=== PATIENT | male | born 2000 | race Caucasian/White ===

== ENCOUNTER 2020-03-30 12:25 | Outpatient (REF) | payer OTHER, SELFPAY | END 2020-03-30 12:26 | disposition home or self-care (01) | LOC: HO.LAB 12:25 | PROVIDERS: Visit Provider Internal Medicine | DX: Z20.828 Contact with and (suspected) exposure to other viral communicable diseases (principal) | CPT/HCPCS: C9803; U0003 ==

== ENCOUNTER 2020-04-06 21:34 | Emergency (ER) | payer OTHER, SELFPAY ==
[2020-04-06 21:53] VITALS: BP 133/90; PULSE 60; RESP 18; TEMP 36.9; O2SAT 98; BMI 31.1
--- NOTE | 2020-04-06 22:04 | ED_ITS ---
HPI - General Adult General Chief complaint: General Medical Stated complaint: Throat Discomfort Time Seen by Provider: 04/06/20 21:59 Source: patient Mode of arrival: ambulatory Limitations: no limitations History of Present Illness HPI narrative: 20 yo male previously healthy here with complaints of burning in his throat and chest after eating and the feeling like food gets stuck. No complaints on arrival in ED. Intermittent symptoms x 1-2 months. No vomiting, diarrhea or abdominal pain. Onset (ago): month(s) Radiation: non-radiation Severity: mild Quality: burning Pain Consistency: intermittent Relieving factors: none Exacerbating factors: none Associated symptoms: denies other symptoms Related Data Previous Rx's Medication Instructions Recorded omeprazole 20 mg PO DAILY #20 cap 04/06/20 Allergies Allergy/AdvReac Type Severity Reaction Status Date / Time No Known Allergies Allergy Verified 04/06/20 21:43 Review of Systems Review of Systems: Yes all other systems are reviewed and are negative Constitutional: Constitutional: Reports no additional constitutional complaints, Denies body ache(s), Denies chills, Denies fever(s), Denies headache(s) and Denies weakness Eyes: Eyes: Reports no additional eye complaints and Denies change in vision ENT: Reports system reviewed and no additional complaints, except as documented, Reports dysphagia, Denies dizziness, Denies headache(s), Denies nasal congestion, Denies nasal discharge and Denies neck pain Cardiovascular: Cardiovascular: Reports no additional cardiovascular complaints, Denies chest pain, Denies leg edema and Denies dyspnea Respiratory: Respiratory: Reports no additional respiratory complaints, Denies cough and Denies dyspnea Gastrointestinal: Gastrointestinal: Reports no additional gastrointestinal complaints, Denies abdominal pain, Reports dysphagia, Denies diarrhea, Denies nausea and Denies vomiting Genitourinary: Genitourinary: Denies urinary incontinence Musculoskeletal: Musculoskeletal: Reports no additional musculoskeletal complaints, Denies back pain, Denies arthralgias, Denies joint swelling, Denies neck pain, Denies numbness and Denies tingling Integumentary/Breasts: Skin/Breast: Reports system reviewed and no additional complaints, except as docu and Denies rash Neurologic: Reports system reviewed and no additional complaints, except as documented, Denies Abnormal speech present, Denies dizziness, Denies headache(s), Denies numbness, Denies tingling and Denies weakness [facility] Past Medical History Attestation statement: The following information was validated with the patient. Source: old records reviewed and nursing notes reviewed Medical History No significant medical problems Social History Social History Alcohol intake: current Alcohol intake frequency: holidays/special occasions only Smoking Status: Never smoker Smoked in Last 30 Days: No Use of substances other than those prescribed or required for medical reasons: No Advance Directives: No Advance Directives Information Provided: No Physical Exam Vital Signs: Vital Signs: Last Vital Signs Temp 98.5 F 04/06/20 21:53 Pulse 60 04/06/20 21:53 Resp 18 04/06/20 21:53 BP 133/90 H 04/06/20 21:53 Pulse Ox 98 04/06/20 21:53 Body Mass Index 31.1 Const: General: cooperative, healthy appearing, comfortable and no acute distress Orientation/consciousness: patient oriented x3 Limitations: no limitations HENMT: Head: Yes normal to inspection Ears: hearing grossly normal randolph aterally General nose exam: Normal external nose present Face and sinus: Yes normal facial exam Mouth: Normal oral and palatal mucosa present Throat: Yes posterior oropharynx normal Eyes: General: appearance normal, both eyes and all related structures Pupils: Equal, round and reactive pupils present Neck: Neck: Yes normal visual inspection Chest: Chest palpation & inspection: normal inspection of the chest Resp: Effort & Inspection: normal respiratory effort Auscultation: clear to auscultation bilaterally Cardio: Rate: regular rate Rhythm: regular rhythm Peripheral pulses: Peripheral pulses 2+ throughout GI: Inspection: Yes normal to inspection Palpation (GI): Soft to palpation and nontender Auscultation: normal bowel sounds Back/Spine/Pelvis: Thoracic/Lumbar Spine: thoracic and lumbar spine normal to inspection Skin: General skin exam: no rashes or lesions noted Neuro: General: patient oriented x3, no focal motor deficits and normal sensation to monofilament Cranial nerves: Yes Equal, round and reactive pupils present Cognition (Neuro): normal cognition Speech: No Abnormal speech present Gait exam (Neuro): Normal gait present Motor exam (neuro): 5/5 motor strength present throughout Extrem: General: Yes normal to inspection Course Course Course Narrative: HPI consistent with GERD and possible esophageal stricture. Patient able to drink and eat while he was here in the emergency department with no difficulty. He can follow up outpatient with GI for further evaluation. We recommended soft diet and PPI until seen by GI. Reviewed worrisome signs and symptoms and when to return to the emergency department. Comfortable with discharge home. Discharge Plan Discharge Clinical Impression: Dysphagia, GERD (gastroesophageal reflux disease) Patient Disposition: Home, Self-Care Instructions: Gastroesophageal Reflux Disease (ED), Dysphagia (ED) Additional Instructions: Soft foods Call GI on Thursday to set up an appointment Prescriptions: New omeprazole 20 mg capsule,delayed release(DR/EC) 20 mg PO DAILY Qty: 20 RF: 0 Referrals: Zbigniew Leon [Physician] - 2 days Interventions: ED Discharge Assessment Last Done: 04/06/20 22:12 Discharge Date/Time: 04/06/20 22:13
== END 2020-04-06 22:13 | disposition home or self-care (01) ==
PROVIDERS: Emergency Provider Emergency Medicine
DX: R13.10 Dysphagia, unspecified (principal); K21.9 Gastro-esophageal reflux disease without esophagitis; Z79.899 Other long term (current) drug therapy
CPT/HCPCS: 99283

== ENCOUNTER 2022-08-17 03:27 | Emergency (ER) | payer OTHER, SELFPAY ==
--- NOTE | ~2022-08-17 | XR_ITS ---
EXAMINATION: XR KNEE, RIGHT CLINICAL INFORMATION: Pain. Fall. COMPARISON: None available. TECHNIQUE: Four views of the right knee. FINDINGS: Bones and soft tissues are normal. No fracture or joint effusion. Alignment is anatomic. Joint spaces are well maintained. No abnormal soft tissue calcification. XR/XR knee RT 4V IMPRESSION: Normal right knee.
[2022-08-17 03:36] VITALS: BP 136/82; PULSE 72; RESP 16; TEMP 36.8; O2SAT 97; BMI 31.3
--- NOTE | 2022-08-17 04:34 | ED.LOWEXIN ---
HPI - Extremity Injury (Lower) General Chief Complaint: Extremity Injury, Lower Stated Complaint: knee inj from baseball Time Seen by Provider: 08/17/22 04:00 Source: patient Mode of arrival: wheelchair History of Present Illness HPI Narrative: 22-year-old male who states that he was playing baseball earlier and that he slid and planted his foot with medial deviation of the right knee stated that he heard a pop in patient was able to walk a little bit on his leg initially but then the pain has gotten progressively worse and this time he is unable to bear weight on his right leg. Related Data Previous Rx's Medication Instructions Recorded omeprazole 20 mg capsule,delayed 20 mg PO DAILY #20 caps 04/06/20 release Allergies Allergy/AdvReac Type Severity Reaction Status Date / Time No Known Allergies Allergy Verified 04/06/20 21:43 Review of Systems Review of Systems: Pertinent positives and negatives as stated in HPI [facility] Past Medical History Source: nursing notes reviewed Medical History No significant medical problems Social History Social History Alcohol intake: current Alcohol intake frequency: holidays/special occasions only Physical Exam Vital Signs: Vital Signs: Last Vital Signs Temp 98.2 F 08/17/22 03:36 Pulse 72 08/17/22 03:36 Resp 16 08/17/22 03:36 BP 136/82 08/17/22 03:36 Pulse Ox 97 08/17/22 03:36 O2 Del Method Room Air 08/17/22 03:36 BMI result Body Mass Index 31.3 VITAL SIGNS: Reviewed. GENERAL: Well developed, well nourished, in no acute distress. HEAD: Normocephalic/atraumatic EYES: PERRLA, EOMI EARS: Ext canals without abnormality LUNGS: Normal breath sounds. No adventitious sounds or accessory muscle use. SpO2<97> CARDIOVASCULAR: Regular rate and rhythm without noted murmurs ABDOMEN: Soft, non-tender, non-distended with bowel sounds. EXTREMITIES: No cyanosis, clubbing or edema. RIGHT KNEE: There is no obvious deformity or effusion noted, tenderness to palpation especially along the medial tibial plateau and along the medial collateral ligaments around posterior to the inferior portion of the popliteal fossa, no effusions or masses palpated, patient unable to tolerate provocative testing he does not express any significant pain on palpation over the lateral collateral ligaments, passive range of motion only to about 15-20 degrees of flexion. Distally, pulses are palpable foot is warm capillary refills less than 3 seconds and sensation is intact. NEUROLOGIC: Alert and oriented x 4. Strength and sensation to light touch were grossly intact x 4. Medical Decision Making Medical Decision Making MDM Narrative: 22-year-old male with suspected AMARI injury likely involves meniscal injury as well. Provocative testing was unable to be performed, patient received combination analgesics and was placed in a knee immobilizer, provided with an ice pack and given crutch training. He will be receiving a referral to follow-up with Dr. Levin by calling the office on Thursday and understands that this does not mean that he will get an appointment on that day. Differential Diagnosis Please see the discussion above Radiology Impression Radiologist Impression: My interpretation is in agreement with radiology's impression of the imaging study. Discharge Plan Discharge Clinical Impression: Injury of knee, right Patient Disposition: Home, Self-Care Instructions: Crutch Instructions (ED), Knee Immobilizer (ED), R.I.C.E. Treatment (ED), Knee Pain (ED) Additional Instructions: 1. Tylenol 1000 mg, orally, every 6 hours as needed for pain control. Do not exceed 4000 mg within 24 hours. 2. Ibuprofen 400 mg, orally with milk or food, every 6 hours as needed for pain control. I recommend taking this medication with Tylenol for improved symptom relief. 3. Please review the additional recommendations for rest, ice, elevation. 4. You have been provided with a referral to follow-up with orthopedics you will need to call the office on Thursday. You will not receive an appointment that same day. Prescriptions: No Action omeprazole 20 mg capsule,delayed release(DR/EC) 20 mg PO DAILY Qty: 20 0RF Referrals: Joss Levin MD [Physician] - (22M, mechanism sounds like possible AMARI/meniscal, couldn't tolerate provocative testing, not much swelling.)
[2022-08-17] MEDS: Acetaminophen 325 MG TABLET 975 MG PO (04:56)
[2022-08-17] MEDS: Ibuprofen 400 MG TABLET PO (04:56)
[2022-08-17 05:32] VITALS: BP 121/77; PULSE 72; RESP 16; TEMP 36.6; O2SAT 98
== END 2022-08-17 06:37 | disposition home or self-care (01) ==
PROVIDERS: Emergency Provider Student in an Organized Health Care Education/Training Program
DX: S80.01XA Contusion of right knee, initial encounter (principal); Y29.XXXA Contact with blunt object, undetermined intent, initial encounter; Y93.64 Activity, baseball; Y92.320 Baseball field as the place of occurrence of the external cause; Y99.9 Unspecified external cause status
CPT/HCPCS: 73564; 99284

== ENCOUNTER 2023-01-01 10:30 | Outpatient (AMB) | payer OTHER, SELFPAY ==
--- NOTE | 2023-01-01 12:19 | AM.OFFWIN_ITS ---
Intake Vital Signs 01/01/23 12:25 Height 5 ft 6 in Weight 95.878 kg BMI 34.1 BP 124/80 Blood Pressure Location Rt brachial Position Sitting Pulse 54 Pulse Source Pulse Oximeter Temp 97.7 F Temp Source Temporal Artery Scan Pulse Oximetry (%) 99 Oxygen Delivery Method Room Air Intake Visit Reasons: EP, Left Shoulder pain [phone] Intake Note: Pt is here c/o left shoulder pain. Pt states he feels he dislocated his shoulder. Allergies No Known Allergies Allergy (Verified 01/01/23 12:19) Do you need a note to return to daycare/school/sports/work: Yes HPI HPI Comments History of Present Illness Details 1252 22-year-old male presents with left shoulder pain since yesterday, patient repo rts pain started after he was catching a ball during baseball he heard a crack and feels like he dislocated his shoulder, patient is able to move his shoulder however with some discomfort overlying the humeral head, reports intermittent tingling however no numbness. Denies fevers and chills. No other injury sustained. No previous injuries with left shoulder Physical exam with full range of motion to bilateral shoulders however slight discomfort with overhead movements in the left shoulder. 2+ radial pulses equal bilateral. No step-offs or deformities on palpation. Capillary refill less than 2 seconds. No wrist drop. Normal sensation distally. Likely sprain or strain. Unlikely fracture, dislocation. No signs of threatened limb or neurovascular compromise. Other differentials include rotator cuff injury. Plan at this time x-ray, naproxen. Educated patient on diagnosis and treatment plan, answered all question, patient verbalizes understanding. At this time patient will be discharged home, advised to return with new or worsening symptoms. Educated on worrisome signs and symptoms and when to return. At this time I feel comfortable discharge home. [facility] Medical History No significant medical problems Social History Alcohol intake: current Alcohol intake frequency: holidays/special occasions only Review of Systems Const Details: Constitutional : No Weight loss, No Fever, No Chills, No Fatigue, No Malaise ENT/Mouth : No sore throat, No Rhinorrhea Eyes: No Eye Pain, No Swelling, No Redness Cardiovascular : No Chest Pain, No SOB, No Dyspnea on Exertion, No Orthopnea, No Edema, No Palpitations Respiratory : No Cough, No Sputum, No Wheezing Gastrointestinal : No Nausea, No Vomiting, No Diarrhea, No Constipation, No abdominal Pain, No Hematochezia, No Melena Genitourinary : No Dysuria, No Urinary Frequency, No Hematuria, Musculoskeletal : + joint pain, No Myalgias, No Joint Swelling Skin : No Skin Lesions, No rash Neuro : No Weakness, No Numbness, No Dizziness, No Headache Psych : No Anxiety/Panic, No Depression All other systems reviewed and are negative All systems reviewed & are unremarkable except as noted in HPI and below Physical Exam Vital Signs: Last Vital Signs Temp 97.7 F 01/01/23 12:25 Pulse 54 01/01/23 12:25 BP 124/80 01/01/23 12:25 Pulse Ox 99 01/01/23 12:25 Oxygen Delivery Method Room Air 01/01/23 12:25 BMI result Body Mass Index 34.1 vss Appearance: Alert.? Oriented X3.? No acute distress.? Head: Normocephalic, atraumatic, no step-offs or deformities Eyes: Pupils equal, round and reactive to light.? CVS: Normal heart rate and rhythm.? Pulses normal.? Respiratory: No respiratory distress.? Breath sounds normal.? Abdomen: Soft and nontender.? Skin: Skin warm and dry.? Normal skin color.? Normal skin turgor.? Extremities: No lower extremity edema.? No calf ttp. 5/5 strength to bilateral upper and lower extremities+ full range of motion to bilateral shoulders however slight discomfort with overhead movements in the left shoulder. 2+ radial pulses equal bilateral. No step-offs or deformities on palpation. Capillary refill less than 2 seconds. No wrist drop. Normal sensation distally. Neuro: Oriented X 3.? No motor deficit.? No sensory deficit. CN 2-12 intact Assessment & Plan Assessment & Plan (1) Left shoulder pain: Code(s): M25.512 - Pain in left shoulder Plan Take your medications as prescribed. If you were prescribed antibiotics today, it is important that you take your medication to their entirety, do not skip any doses, do not finish them early. Follow-up with your primary care provider this week. Return to the emergency department with new or worsening symptoms. Such as fevers, chills, chest pain, shortness of breath, nausea, vomiting, dizziness, headache, vision changes, lethargy In case of emergency call 911 Orders: Orders XR shoulder LT min 2V Today M25.512 - Pain in left shoulder Referrals Orthopedics Referral M25.512 - Pain in left shoulder Medications: New naproxen 500 mg PO BID PRN 14 tabs 0RF pain Coding Level of Care Code Est Pt Level 3 (58465) Diagnoses Left shoulder pain M25.512
[2023-01-01 12:25] VITALS: BP 124/80; PULSE 54; TEMP 36.5; O2SAT 99; BMI 34.1
== END 2023-01-01 13:48 | disposition home or self-care (01) ==
PROVIDERS: Visit Provider Physician Assistant
DX: M25.512 Pain in left shoulder (principal)
CPT/HCPCS: 99213

== ENCOUNTER 2023-01-01 12:52 | Outpatient (REF) | payer OTHER, SELFPAY ==
--- NOTE | ~2023-01-01 | XR_ITS ---
EXAMINATION: XR SHOULDER, LEFT CLINICAL INFORMATION: Left shoulder pain. COMPARISON: None available. TECHNIQUE: Three views of the left shoulder. FINDINGS: The bones and soft tissues are normal. No fracture. Glenohumeral and acromioclavicular alignment is anatomic with normal joint space. No abnormal soft tissue calcifications. XR/XR shoulder LT min 2V IMPRESSION: Unremarkable left shoulder.
== END 2023-01-01 12:53 | disposition home or self-care (01) ==
LOC: HO.HMGCX 12:52
PROVIDERS: Visit Provider Physician Assistant
DX: M25.512 Pain in left shoulder (principal)
CPT/HCPCS: 73030